=== PATIENT | male | born 1945 | race Caucasian/White ===

== ENCOUNTER 2022-05-24 09:47 | Day surgery (SDC) | payer MEDICARE, OTHER ==
[2022-05-24] MEDS ORDERED: Lactated Ringers 1,000 ML IV SCH (10:00)
[2022-05-24] MEDS ORDERED: Sodium Chloride 0.9% 10 ML Syringe FLUSH PRN (10:00)
[2022-05-24] MEDS ORDERED: Midazolam 1 MG/ML 2 ML SDV ONE (11:23)
[2022-05-24] MEDS ORDERED: Propofol 200 MG/20 ML SDV ONE (11:24)
[2022-05-24 13:01] VITALS: BP 106/67; PULSE 52
== END 2022-05-24 13:25 | disposition home or self-care (01) ==
LOC: KA.SDS 09:47
PROVIDERS: ATTEND Surgery
DX: D12.3 Benign neoplasm of transverse colon (principal); D12.5 Benign neoplasm of sigmoid colon; G35 Multiple sclerosis; M17.0 Bilateral primary osteoarthritis of knee; Z98.890 Other specified postprocedural states; Z79.899 Other long term (current) drug therapy
CPT/HCPCS: 00811; 88305; J2250; J2704; J3490; J7120